=== PATIENT | male | born 1995 | race Two or more races ===

== ENCOUNTER 2019-08-12 20:59 | Emergency (ER) | payer BC ==
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
--- NOTE | 2019-08-12 22:33 | CT ---
INDICATION: Pain following fall TECHNIQUE: CT cervical spine without contrast. COMPARISON: None FINDINGS: Vertebral alignment: Alignment is normal. Vertebrae: There are no fractures or suspicious bony lesions. Discs and facet joints: Disc spaces and facets are within normal limits. Extraspinal findings: Prevertebral soft tissues, visualized airway, and visualized lungs are unremarkable. IMPRESSION: Unremarkable cervical spine CT. Dictated by Robert Brand MD @ 08/12/2019 10:31:02 PM Please note that all CT scans at this facility use dose modulation, iterative reconstruction, and/or weight-based dosing when appropriate to reduce radiation dose to as low as reasonably achievable. Dictated by: Robert Brand MD @ 08/12/2019 22:31:09 (Electronically Signed)
--- NOTE | 2019-08-12 22:39 | CT ---
INDICATION: Upper thoracic spine pain following fall TECHNIQUE: CT thoracic spine without contrast. COMPARISON: None FINDINGS: Vertebral alignment: Alignment is normal. Vertebrae: Fracture T5 spinous process. Fracture involving the anterior superior endplate T6 vertebral body. Probable nondisplaced fracture involving the left inferior facet at the T12-L1 level. Discs and facet joints: Disc spaces and facets are within normal limits. Extraspinal findings: Prevertebral soft tissues, visualized airway, and visualized lungs are unremarkable. IMPRESSION: Fracture T5 spinous process. Fracture involving the anterior superior endplate T6 vertebral body. Probable nondisplaced fracture involving the left inferior facet of T12-L1 level. Dictated by Robert Brand MD @ 08/12/2019 10:38:52 PM Please note that all CT scans at this facility use dose modulation, iterative reconstruction, and/or weight-based dosing when appropriate to reduce radiation dose to as low as reasonably achievable. Dictated by: Robert Brand MD @ 08/12/2019 22:38:58 (Electronically Signed)
[2019-08-12] MEDS ORDERED: Ketorolac 60 MG/2 ML SDV IM ONE (23:19)
== END 2019-08-13 01:12 | disposition home or self-care (01) ==
LOC: MW.ED 20:59
DX: S22.059A Unspecified fracture of T5-T6 vertebra, initial encounter for closed fracture (principal); Z88.2 Allergy status to sulfonamides; V86.56XA Driver of dirt bike or motor/cross bike injured in nontraffic accident, initial encounter
CPT/HCPCS: 72100; 72125; 72128; 73562; 96372; 99284; J1885

== ENCOUNTER 2024-06-01 21:53 | Emergency (ER) | payer BC ==
[2024-06-01] MEDS: Lidocaine 1% 5 ML VIAL INJECT ONE (23:35)
[2024-06-02] MEDS: Diphtheria,Pertussis(Acell),Tetanus Vaccine 0.5 ML Syringe IM ONE (00:17)
[2024-06-02] MEDS: Amoxicillin/Clavulanate K 875-125 MG Tab PO ONE (00:23)
[2024-06-02] MEDS: Acetaminophen 325 MG Tab PO ONE (00:23)
== END 2024-06-02 01:01 | disposition home or self-care (01) ==
LOC: MW.ED 21:53
DX: S01.511A Laceration without foreign body of lip, initial encounter (principal); Z75.8 Other problems related to medical facilities and other health care; Z79.899 Other long term (current) drug therapy; Z88.2 Allergy status to sulfonamides; Y04.8XXA Assault by other bodily force, initial encounter; Y93.89 Activity, other specified
CPT/HCPCS: 90471; 90715; 99283; A9270; 12013; J3490